=== PATIENT | female | born 1950 | race Two or more races ===

== ENCOUNTER 2018-01-26 08:24 | Emergency (ER) | payer OTHER, MEDICAID ==
[~2018-01-26] VITALS: Ht 157.5 cm; Wt 93.4 kg
[2018-01-26 08:37] VITALS: Ht 157.5 cm; Wt 93.4 kg
[2018-01-26 10:08] VITALS: BP 125/67
[2018-01-26 10:12] LABS: microscopic required? YES; urine erythrocyte 3+ (NEGATIVE)
== END 2018-01-26 10:47 | disposition home or self-care (01) ==
LOC: ED 08:24
PROVIDERS: Specialist
DX: N39.0 Urinary tract infection, site not specified (principal); I10 Essential (primary) hypertension; E11.9 Type 2 diabetes mellitus without complications; Z88.6 Allergy status to analgesic agent